=== PATIENT | female | born 1945 | race Caucasian/White ===

== ENCOUNTER 2016-04-29 16:52 | Inpatient (IN) | payer MEDICARE, BC ==
[2016-04-30 07:12] LABS: HEMATOCRIT 30.5 % (34-45); MEAN CORPUSCULAR HEMOGLOBIN 33.2 pg (27.0-33.0); MEAN CORPUSCULAR HGB CONC 32.8 g/dL (32.0-36.0); MEAN CORPUSCULAR VOLUME 101.3 fL (79-95); MEAN PLATELET VOLUME 12.2 fl (7.5-11.5); RED BLOOD COUNT 3.01 x10_6/uL (3.9-5.2); RED CELL DISTRIBUTION WIDTH 17.4 % (11.7-14.4); WHITE BLOOD COUNT 4.5 x10_3/uL (4.0-10.0)
[2016-04-30 07:23] LABS: BLOOD UREA NITROGEN 19 mg/dL (7-18); CALCIUM 7.8 mg/dL (8.7-10.7); CARBON DIOXIDE 26 mmol/L (21-32); CREATININE < 0.5 mg/dL (0.6-1.3); GLUCOSE,RANDOM 100 mg/dL (70-99); POTASSIUM 4.3 mmol/L (3.5-5.1); SODIUM 138 mmol/L (136-145)
[2016-04-30 10:33] LABS: URINE BILIRUBIN NEGATIVE (NEGATIVE); URINE BLOOD 1+ (NEGATIVE); URINE GLUCOSE (UA) NORMAL (NORMAL); URINE KETONE NEGATIVE (NEGATIVE); URINE LEUKOCYTE ESTERASE TRACE (NEGATIVE); URINE NITRATE NEGATIVE (NEGATIVE); URINE PROTEIN TRACE (NEGATIVE); UROBILINOGEN NORMAL mg/dL (<1.0)
[2016-04-30 10:49] LABS: URINE BACTERIA 1+ (NONE SEEN); URINE RENAL EPITHELIAL CELLS 0-10 /[HPF] (NONE SEEN); URINE WBC >15 /[HPF] (0-5)
[2016-05-03 06:12] LABS: HEMATOCRIT 32.9 % (34-45); HEMOGLOBIN 11.5 g/dL (11.2-15.7); MEAN CORPUSCULAR HEMOGLOBIN 33.4 pg (27.0-33.0); MEAN CORPUSCULAR VOLUME 95.6 fL (79-95); PLATELET COUNT 72 x10_3/uL (182-369); RED BLOOD COUNT 3.44 x10_6/uL (3.9-5.2); RED CELL DISTRIBUTION WIDTH 17.3 % (11.7-14.4)
[2016-05-03 06:34] LABS: CALCIUM 8.4 mg/dL (8.7-10.7); CARBON DIOXIDE 21 mmol/L (21-32); CREATININE 0.6 mg/dL (0.6-1.3); GLUCOSE,RANDOM 125 mg/dL (70-99); SODIUM 126 mmol/L (136-145)
[2016-05-03 06:54] LABS: BLOOD UREA NITROGEN 27 mg/dL (7-18)
[2016-05-03 06:56] LABS: POTASSIUM 5.5 mmol/L (3.5-5.1)
[2016-05-06 07:38] LABS: HEMATOCRIT 31.2 % (34-45); HEMOGLOBIN 10.6 g/dL (11.2-15.7); MEAN CORPUSCULAR HEMOGLOBIN 34.1 pg (27.0-33.0); MEAN CORPUSCULAR VOLUME 100.3 fL (79-95); MEAN PLATELET VOLUME 11.6 fl (7.5-11.5); RED BLOOD COUNT 3.11 x10_6/uL (3.9-5.2); RED CELL DISTRIBUTION WIDTH 17.2 % (11.7-14.4); WHITE BLOOD COUNT 3.2 x10_3/uL (4.0-10.0)
[2016-05-06 07:52] LABS: BLOOD UREA NITROGEN 28 mg/dL (7-18); CALCIUM 8.2 mg/dL (8.7-10.7); CARBON DIOXIDE 22 mmol/L (21-32); CREATININE 0.6 mg/dL (0.6-1.3); GLUCOSE,RANDOM 114 mg/dL (70-99); POTASSIUM 4.5 mmol/L (3.5-5.1); SODIUM 133 mmol/L (136-145)
[2016-05-10 06:37] LABS: BLOOD UREA NITROGEN 35 mg/dL (7-18); CALCIUM 8.5 mg/dL (8.7-10.7); CARBON DIOXIDE 22 mmol/L (21-32); CREATININE 0.6 mg/dL (0.6-1.3); GLUCOSE,RANDOM 119 mg/dL (70-99); HEMATOCRIT 33.1 % (34-45); HEMOGLOBIN 11.1 g/dL (11.2-15.7); MEAN CORPUSCULAR HGB CONC 33.5 g/dL (32.0-36.0); MEAN CORPUSCULAR VOLUME 101.5 fL (79-95); MEAN PLATELET VOLUME 11.6 fl (7.5-11.5); POTASSIUM 5.3 mmol/L (3.5-5.1); RED BLOOD COUNT 3.26 x10_6/uL (3.9-5.2); RED CELL DISTRIBUTION WIDTH 16.8 % (11.7-14.4); SODIUM 135 mmol/L (136-145); WHITE BLOOD COUNT 6.3 x10_3/uL (4.0-10.0)
[2016-05-13 07:47] LABS: HEMATOCRIT 31.4 % (34-45); MEAN CORPUSCULAR HEMOGLOBIN 35.1 pg (27.0-33.0); MEAN CORPUSCULAR VOLUME 100.3 fL (79-95); MEAN PLATELET VOLUME 11.6 fl (7.5-11.5); RED BLOOD COUNT 3.13 x10_6/uL (3.9-5.2); RED CELL DISTRIBUTION WIDTH 16.4 % (11.7-14.4); WHITE BLOOD COUNT 6.8 x10_3/uL (4.0-10.0)
[2016-05-13 07:50] LABS: BLOOD UREA NITROGEN 34 mg/dL (7-18); CALCIUM 8.1 mg/dL (8.7-10.7); CARBON DIOXIDE 22 mmol/L (21-32); CREATININE < 0.5 mg/dL (0.6-1.3); GLUCOSE,RANDOM 104 mg/dL (70-99); POTASSIUM 4.2 mmol/L (3.5-5.1); SODIUM 137 mmol/L (136-145)
[2016-05-17 06:34] LABS: HEMOGLOBIN 9.1 g/dL (11.2-15.7); MEAN CORPUSCULAR HEMOGLOBIN 33.6 pg (27.0-33.0); MEAN CORPUSCULAR HGB CONC 32.5 g/dL (32.0-36.0); MEAN CORPUSCULAR VOLUME 103.3 fL (79-95); MEAN PLATELET VOLUME 11.2 fl (7.5-11.5); RED BLOOD COUNT 2.71 x10_6/uL (3.9-5.2); RED CELL DISTRIBUTION WIDTH 16.2 % (11.7-14.4); WHITE BLOOD COUNT 6.3 x10_3/uL (4.0-10.0)
[2016-05-17 06:40] LABS: BLOOD UREA NITROGEN 37 mg/dL (7-18); CARBON DIOXIDE 23 mmol/L (21-32); CREATININE 0.5 mg/dL (0.6-1.3); GLUCOSE,RANDOM 122 mg/dL (70-99); POTASSIUM 3.8 mmol/L (3.5-5.1); SODIUM 140 mmol/L (136-145)
== END 2016-05-17 15:10 | disposition other institution (70) | DRG 558 ==
LOC: SWING 16:52
PROVIDERS: ADMIT Family Medicine
DX: M62.50 Muscle wasting and atrophy, not elsewhere classified, unspecified site (principal); C34.90 Malignant neoplasm of unspecified part of unspecified bronchus or lung; R64 Cachexia; C79.31 Secondary malignant neoplasm of brain; E27.40 Unspecified adrenocortical insufficiency; Z68.20 Body mass index [BMI] 20.0-20.9, adult; R53.81 Other malaise; K59.00 Constipation, unspecified; D69.6 Thrombocytopenia, unspecified; R53.1 Weakness; M19.90 Unspecified osteoarthritis, unspecified site; J44.9 Chronic obstructive pulmonary disease, unspecified; Z87.01 Personal history of pneumonia (recurrent); Z66 Do not resuscitate; Z79.899 Other long term (current) drug therapy; Z87.891 Personal history of nicotine dependence; Z88.2 Allergy status to sulfonamides; Z88.5 Allergy status to narcotic agent; Z90.710 Acquired absence of both cervix and uterus
CPT/HCPCS: 36415; 80048; 81001; 84132; 87070; 87086; 94640; 97110; 97530; 99070